=== PATIENT | male | born 1995 | race Caucasian/White ===

== ENCOUNTER 2021-11-04 00:08 | Emergency (ER) | payer OTHER ==
[~2021-11-04 00:08] MED LIST: Haloperidol Lactate 5 MG/ML SDV IM ONE; LORazepam 2 MG/ML SDV IM ONE; diphenhydrAMINE 50 MG/ML SDV IM ONE
[2021-11-04] MEDS ORDERED: Sodium Chloride 0.9% 10 ML Syringe FLUSH PRN (00:50)
[2021-11-04] MEDS ORDERED: Ondansetron 4 MG/2 ML SDV IVPUSH PRN (00:52)
[2021-11-04] MEDS ORDERED: Sodium Chloride 0.9% 1,000 ML IV ONE (00:59)
[2021-11-04] MEDS ORDERED: Sodium Chloride 0.9% 1,000 ML IV SCH ×3 (01:00→01:15)
[2021-11-04] MEDS ORDERED: Haloperidol Lactate 5 MG/ML SDV IM ONE (01:11)
[2021-11-04] MEDS ORDERED: LORazepam 2 MG/ML SDV IM PRN (01:11)
[2021-11-04] MEDS ORDERED: diphenhydrAMINE 50 MG/ML SDV IM ONE (01:11)
[2021-11-04] MEDS ORDERED: Flumazenil 0.1 MG/ML 5 ML MDV IVPUSH SCH (02:45)
== END 2021-11-04 03:18 | disposition home or self-care (01) ==
LOC: LB.ED 00:08
DX: F10.129 Alcohol abuse with intoxication, unspecified (principal); Y90.8 Blood alcohol level of 240 mg/100 ml or more; Z20.822 Contact with and (suspected) exposure to COVID-19
CPT/HCPCS: 36415; 70450; 80048; 80143; 80179; 80307; 81003; 85025; 87635; 93005; 96372; 96374; 96375; 99284; A0425; A0429; J1200; J1630; J2060; J2405; J3490; J7030; 99282; U0002